=== PATIENT | male | born 1970 | race African-American/Black ===

== ENCOUNTER 2021-03-21 07:23 | Outpatient (CLI) | payer OTHER, SELFPAY ==
--- NOTE | 2021-04-01 20:42 | WPDSLEEPSTUD ---
Sleep Study Date of Study: 03/21/21 <Yue Gasca DO - Last Filed: 04/02/21 14:55> Ordering Provider: Romy Lopes MD <Yue Gasca DO - Last Filed: 04/02/21 14:55> Interpreting Physician: Yue Gasca DO <Yue Gasca DO - Last Filed: 04/02/21 14:55> Sleep Study Type: Split Polysomnogram <Yue Gasca DO - Last Filed: 04/02/21 14:55> Height: 1.83 m <Yue Gasca DO - Last Filed: 04/02/21 14:55> Weight: 113.398 kg <Yue Gasca DO - Last Filed: 04/02/21 14:55> Body Mass Index: 33.9 <Yue Gasca DO - Last Filed: 04/02/21 14:55> Neck Circumference (inches): 15 <Yue Gasca DO - Last Filed: 04/02/21 14:55> [place]: 4 <Yue Gasca DO - Last Filed: 04/02/21 14:55> Reason for Sleep Study Unrefreshing sleep, daytime hypersomnia and 2 year history of dream enactment <Yue Gasca, DO - Last Filed: 04/02/21 14:55> Sleep History The patient is a 51-year-old male with hypertension, GERD, erectile dysfunction and dream enactment behavior that had a sleep study for dirt by his r d engineer. The patient states that he has difficulty falling asleep and staying asleep throughout the night. He denies awakening at night with heartburn, belching or cough. He constantly snores loud enough that others complaints. He denies waking up gasping for air throughout the night. He occasionally sweats excessively at night. He denies heart palpitations or irregular heartbeat during the night. He occasionally falls asleep during the day but never while driving. He denies sleep paralysis, cataplexy and hypnagogic / hypnopompic hallucinations. He denies having trouble at work due to sleepiness. He occasionally has nightmares. He denies feeling sad, depressed or anxious. He occasionally kicks during the night. He denies crawling and aching feelings in his legs as well as leg pain during the night. For he denies having morning jaw pain. He denies being bothered by pain during the day and being awakened by pain during the night. He rarely wakes up feeling stiff in the morning. He rarely wakes up with sore and achy muscles. He goes to bed at 8:30 p.m. on weekdays and 9:00 p.m. on the weekends. It takes him 1 hour to fall asleep. He wakes up 3-5 times throughout the night. When he awakens, he will try to go back asleep. He can usually fall asleep within a few minutes. He wakes up at 6:00 a.m. on the weekdays and 6:30 a.m. on the weekends. He typically gets 5 hours of sleep per night. He will stay in bed for 30 minutes after waking up in the morning. He currently lives with his and children. He does not consume any caffeinated beverages within 2 hours of bedtime. He does not engage in physical exercise before bedtime. He will watch television before falling asleep. He will occasionally take a nap in the afternoon or the evening but it is not refreshing. He doesn't consume any caffeinated beverages during the day. He drinks 1 alcoholic beverage per day. He denies tobacco and recreational drug use. <Yue Gasca DO - Last Filed: 04/02/21 14:55> [facility] Past Medical History Medical History: Medical History (Updated 04/02/21 @ 14:42 by Yue Gasca DO) GERD (gastroesophageal reflux disease) Hypertension <Yue Gasca DO - Last Filed: 04/02/21 14:55> Family History Family History: Family History Mother Hypertension Sibling Lupus has 2 sisters with lupus Grandparent Diabetes mellitus maternal grandfather <Yue Gasca DO - Last Filed: 04/02/21 14:55> Social History Social History: Social History Smoking status: Never smoker <Yue Gasca DO - Last Filed: 04/02/21 14:55> Medications Home M
[2021-04-02 14:12] VITALS: BMI 33.9
== END 2021-03-22 07:00 | disposition home or self-care (01) ==
LOC: ANHCSM 07:24
PROVIDERS: Visit Provider Internal Medicine Critical Care Medicine
DX: G47.33 Obstructive sleep apnea (adult) (pediatric) (principal); G47.19 Other hypersomnia
CPT/HCPCS: 95806; 95811

== ENCOUNTER 2022-09-25 08:17 | Outpatient (CLI) | payer OTHER, SELFPAY ==
--- NOTE | ~2022-09-25 | SLEEP.INT_ITS ---
Polysomnography Report Patient Name: AARON MILLER Study Date: 09/25/2022 Referring Physician: Ricky Quintero APRN Indications for Polysomnography The patient is a 52 year-old male 6' tall and 240.0 lbs, BMI is 32.9. ESS =3 while using CPAP. ??? 03/21/2021 ??? split night polysomnogram = mild MICHAEL, AHI 13.4, REM AHI 58.7. Optimal CPAP 13 cm using a medium AirFit P30i nasal pillows. 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 He is having a full night basic polysomnogram to evaluate his response to his ProSomnus oral device for management of obstructive sleep apnea. He was fitted with this by dental sleep specialist, Dr Miah narvaez, as he was not able to tolerate CPAP, even with Lunesta. On the night of this study, 09/25/2022 20:30 Sleep supervisor laboratory animal facility [facility] me called about the patient having his PSG tonight. She wanted to know if he is to have a CPAP titration. No, I clarified that he is to wear his oral appliance, a cust om ProSomnus with elastic bands currently at 80 full turns or 8 mm advancement. If he develops an AHI > 5 or RDI > 5, he is instructed to advance the device 10 turns, 1 mm advancement, per Dr Yunier Causey's instruction on her August 28 letter. Sleep History Parts of this history are taken from his sleep questionnaire with his Mar 2021 study. Aaron olivo is a 52-year-old male with a diagnosis of obstructive sleep apnea on a split night polysomnogram on 03/21/2021. 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 He was initially referred for acting out his dreams. He was having difficulty falling asle ep and staying asleep throughout the night. He denied waking at night with heartburn, belching or coughing. He constantly snored loudly enough that others complained. He denied waking up gasping for air. He occasionally had episodes of sweating excessively at night. He denied heart palpitations or irregula r heartbeats during the night. He occasionally fell asleep during the day but never while driving. He denied sleep paralysis, cataplexy, or vivid dreamlike scenes on waking or falling asleep. He denied having t rouble at work due to sleepiness. He occasionally had nightmares. He denied feeling sad, depressed or anxious. He occasionally kicked during the night. He denied crawling and aching feelings in his leg s as well as leg pain during the night. He did not have morning jaw pain. He denies being bothered by pa in during the day or being awakened by pain during the night. He rarely woke up with stiffness in the morning. Normal bedtime was 8:30 p.m. on weekdays and 9:00 p.m. on the weekends, taking an hour to fall asleep. He had 3 to 5 episodes of waking at night, and was able to return to sleep easily. Normal wak e time was 6:00 a.m. on the weekdays and 6:30 a.m. on the weekends. His usual amount of sleep was 5 hours. He reported taking an occasional nap in the afternoon or evening without feeling refreshed afterwards. Habits: No tobacco. No caffeine. Alcohol: 1 per day. No recreational substances. 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 Respiratory parameters of chest a nd abdominal movements were recorded with Respiratory Inductance Plethysmography belts. Oxygen saturation was recorded by pulse oximetry. Video monitoring was also performed. Sleep stages, periodi c limb movements, and EEG arousals were scored in 30 second epochs a
== END 2022-09-26 07:49 | disposition home or self-care (01) ==
LOC: ANHCSM 08:18
PROVIDERS: Visit Provider Nurse Practitioner Family
DX: G47.33 Obstructive sleep apnea (adult) (pediatric) (principal)
CPT/HCPCS: 95810

== ENCOUNTER 2025-03-01 14:16 | Outpatient (CLI) | payer OTHER, SELFPAY ==
--- OUTSIDE RECORDS SUMMARY | 2025-02-27 14:11 | XMS_ITS | Encounter Summary ---
Author Organization [facility] Address [address] [place] [id number] Care Team Providers Care Hydroelectric Plant Maintainer Name Role Phone Zachary Morgan DO Primary Care Provider [phone] Encounter Details Date Type Department Care Team (Late st Contact Info) Description 02/27/2025 2:11 PM MOBILE HOME INSTALLER - 02/27/2025 11:[address] [facility] Hospital Encounter [facility] [place] [address] Mirella Leiva NP [address] [facility] [address] [facility] [place] [address] Arrived Discharge Disposition: Home or Self Care (Routine Discharge) Social History Tobacco Use Types Packs/Day Years Used Date Smoking Tobacco: Never Smokeless Tobacco: Never Alcohol Use Standard Drinks/Week Comments Yes 0 (1 standard drink = 0.6 oz pur e alcohol) SOCIALLY Sex and Gender Information Value Date Recorded Sex Assigned at Male 02/06/2025 1:48 PM MOBILE HOME INSTALLER Legal Sex Male 6:36 PM CDT Gender Identity Not on file Sexual Orientation Not on file documented as of this encounter Medications at Time of Discharge dicyclomine (BENTYL) 20 MG tablet Take 1 tablet (20 mg total) by mouth every 6 (six) hours as needed. 20 tablet 04/17/2022 hydrochlorothiazide 25 MG tablet Take 25 mg by mouth every morning. lisinopril 20 MG tablet Take 20 mg by mouth daily. naproxen 500 MG tablet Take 1 tablet (500 mg total) by mouth 2 (two) times daily with meals. 60 tablet 10/11/2020 ondansetron (ZOFRAN-ODT) 4 MG disintegrating tablet Take 1 tablet (4 mg total) by mouth every 8 (eight) hours as needed for Nausea. 20 tablet 02/24/2025 tamsulosin (FLOMAX) 0.4 MG Cap Take 1 capsule (0.4 mg total) by mouth daily for 10 days. 10 capsule 02/24/2025 documented as of this encounter Plan of Treatment Pending Results Name Type Priority Associated Diagnoses Date /Time XR ABD KUB Imaging Routine Kidney stones 02/27/2025 2:22 PM MOBILE HOME INSTALLER Scheduled Orders Name Type Priority Associated Diagnoses Orde r Schedule XR ABD KUB Imaging Routine Kidney stones Once for 1 Occurrences starting 02/27/2025 until 02/27/2025 documented as of this encounter Visit Diagnoses Diagnosis Kidney stones Calculus of kidney documented in this encounter Care Teams Hydroelectric Plant Maintainer Relationship Specialty Start Date End Date Zachary Morgan DO [address] [address] PCP - General FAMILY PRACTICE 01/05/25 documented as of this encounter
--- NOTE | 2025-03-01 14:32 | ECG_ITS ---
Test Date: 2025-03-01 14:41:34 Measurements Intervals [place] Rate: 72 P: 20 PA: 177 QRS: -13 QRSD: 80 T: -10 QT: 301 QTc: 331 Interpretive Statements SINUS RHYTHM LOW QRS VOLTAGE IN PRECORDIAL LEADS LEFT VENTRICULAR HYPERTROPHY NONSPECIFIC T-WAVE ABNORMALITY- ANTEROLAT/INF LEADS BASELINE ARTIFACT- I, II, AVR BORDERLINE ECG No previous ECG available for comparison Electronically Signed On 03-01-2025 14:44:42 [employer] by Robert Wilder D.O.
[2025-03-01 15:09] LABS: Anion Gap 7 mmol/L (4-12); Blood Urea Nitrogen 19 mg/dL (9-20); Calcium 9.8 mg/dL (8.4-10.2); Carbon Dioxide 26 mmol/L (22-30); Chloride 106 mmol/L (98-107); Estimated Glomerular Filt Rate > 60; Glucose 100 mg/dL (65-110); Potassium 3.6 mmol/L (3.4-5.0); Sodium 139 mmol/L (137-145)
--- OUTSIDE RECORDS SUMMARY | 2025-03-01 17:10 | XMS_ITS | Clinical Summary ---
Author Organization [facility] Address [address] [facility] [address] [facility] Attn: Epic Prelude ADT RADHA GARCIA [address] Care Team Providers Care Pants Busheler Name Role Phone Unavailable Primary Care Provider Unavailabl e Allergies No known active allergies Medications eszopiclone (LUNESTA) 1 mg Tablet TAKE ONE TABLET (1MG) BY MOUTH AT BEDTIME NEEDED FOR INSOMNIA 30 Tablet 11/12/2021 4:48 PM CDT 2 Active eszopiclone (LUNESTA) 3 mg Tablet Take 1 Tablet (3 mg) by mouth once for 1 dose. Take with you to sleep center for sleep study, if needed. 1 Tablet 09/04/2022 7:05 PM CDT 3 Active cyclobenzaprine (FLEXERIL) 5 mg Tablet Take 1 tablet (5 mg total) by mouth 3 (three) times daily as needed. 30 Tablet 12/04/2022 10:35 AM CDT 3 Active ibuprofen (MOTRIN) 600 mg tablet Take 1 Tablet (600 mg) by mouth every 6 hours as needed. 30 Tablet 12/04/2022 10:35 AM CDT 3 Active lidocaine (LIDODERM) 5 % Adhesive Patch, Medicated Place 1 patch onto the skin daily for 30 days. Remove & Discard patch within 12 hours or as directed by . 30 Patch 12/04/2022 10:35 AM CDT 3 Active bismuth subsalicylate (Pepto-BismoL) 262 mg Tablet Take 2 tablets by mouth 4 times per day for 14 days 112 Tablet 5 Active tetracycline (SUMYCIN) 500 mg capsule Take 1 capsule by mouth 4 times per day for 14 days 56 Capsule 08/18/2024 12:54 PM CDT 5 Active metroNIDAZOLE (FLAGYL) 500 mg tablet Take 1 tablet by mouth 4 times daily for 14 days (do not drink any alcohol on this medication) 56 Tablet 08/18/2024 12:54 PM CDT 5 Active tamsulosin (FLOMAX) 0.4 mg capsule Take 1 capsule (0.4 mg total) by mouth daily for 10 days. 10 Capsule 02/24/2025 7:51 PM GENERAL MANAGER FARM 5 03/06/20 25 Active ondansetron (ZOFRAN ODT) 4 mg Tablet, Rapid Dissolve Let 1 tablet (4 mg total) dissolve on tongue then swallow every 8 (eight) hours as needed for Nausea. 20 Tablet 02/24/2025 7:51 PM GENERAL MANAGER FARM 5 Active HYDROcodone-acetam inophen (NORCO) 5-325 mg tablet Take 1 tablet by mouth every 6 (six) hours as needed for pain 10 Tablet 02/24/2025 7:51 PM GENERAL MANAGER FARM 5 Active Encounters Date Type Department Care Team Description 01/17/2025 External Device Data [facility] ABSTRACTION Provider, Abstract 01/11/2025 External Device Data [facility] Provider, Abstract 01/10/2025 External Device Data [facility] Provider, Abstract from Last 3 Months Social History Tobacco Use Types Packs/Day Years Used Date Smoking Tobacco: Never Assessed Sex and Gender Information Value Date Recorded Sex Assigned at Not on file Legal Sex Male 3:23 PM CDT Gender Identity Not on file Sexual Orientation Not on file Plan of Treatment Health Maintenance Due Date Last Done Comments DTAP/TDAP/TD VACCINES (1 - Tdap) 01/21/1988 HEPATITIS B VACCINES (1 of 3 - 19+ 3-dose series) 09/1987 COLORECTAL SCREENING 2014 Colorectal Cancer Screening 2014 FIT-DNA Q 3 years 2014 FIT/FOBT Q 1 year 2014 Flex Sig/CT Colonography Q 5 years 2014 ZOSTER VACCINE (1 of 2) 2019 INFLUENZA VACCINE (#1) 2024 Insurance RX [employer]
--- OUTSIDE RECORDS SUMMARY | 2025-03-01 17:10 | XMS_ITS | Clinical Summary ---
Author Organization [facility] Address [address] [facility] [place] [address] Care Team Providers Care Webmaster Name Role Phone Unavailable Primary Care Provider Unavailabl e Social History Tobacco Use Types Packs/Day Years Used Date Smoking Tobacco: Never Assessed Sex and Gender Information Value Date Recorded Sex Assigned at Not on file Legal Sex Male 1:14 AM EST Gender Identity Not on file Sexual Orientation Not on file Plan of Treatment Not on file [place] [id number]
--- OUTSIDE RECORDS SUMMARY | 2025-03-01 17:10 | XMS_ITS | Clinical Summary ---
Author Organization [facility] Address [facility]ly [facility] [place] [address] Care Team Providers Care Closet Organizer Name Role Phone Zachary Venegas DO Primary Care Provider [phone] Allergies No known active allergies Medications lisinopril 20 MG tablet Take 20 mg by mouth daily. Active hydrochlorothiazide 25 MG tablet Take 25 mg by mouth every morning. Active naproxen 500 MG tablet Take 1 tablet (500 mg total) by mouth 2 (two) times daily with meals. 60 tablet 1 Active dicyclomine (BENTYL) 20 MG tablet Take 1 tablet (20 mg total) by mouth every 6 (six) hours as needed. 20 tablet 3 Active tamsulosin (FLOMAX) 0.4 MG Cap Take 1 capsule (0.4 mg total) by mouth daily for 10 days. 10 capsule 5 03/06/20 25 Active ondansetron (ZOFRAN-ODT) 4 MG disintegrating tablet Take 1 tablet (4 mg total) by mouth every 8 (eight) hours as needed for Nausea. 20 tablet 5 Active HYDROcodone-acetami nophen (NORCO) 5-325 MG tabletIndications:A cute Pain < 3 Day Supply Take 1 tablet by mouth every 6 (six) hours as needed. Indications : Acute Pain < 3 Day Supply 10 tablet 5 02/28/20 25 Active Problems No known active problems Encounters Date Type Department Care Team Description 02/27/2025 2:11 PM HOGSHEAD PACKER - 02/27/2025 11:59 PM HOGSHEAD PACKER Hospital Encounter [facility] [place] [address] Mirella Leiva, CIVIL ENGINEER [employer]AND DEVELOPMENT Arrived Discharge Disposition: Home or Self Care (Routine Discharge) 02/27/2025 Travel 02/24/2025 3:37 PM HOGSHEAD PACKER - 02/24/2025 7:03 PM HOGSHEAD PACKER Emergency Health system [place] [address] Maylin Saxena MD Abdominal Pain Discharge Disposition: Home or Self Care (Routine Discharge) 02/24/2025 Travel 02/06/2025 1:50 PM HOGSHEAD PACKER - 02/06/2025 11:59 PM HOGSHEAD PACKER Hospital Encounter [place] [address] Zachary Venegas, DO Discharge Disposition: Home or Self Care (Routine Discharge) 02/06/2025 Travel from Last 3 Months Family History Medical History Relation Comments Hypertension Mother Relation Status Comments Father Mother Alive Social History Tobacco Use Types Packs/Day Years Used Date Smoking Tobacco: Never Smokeless Tobacco: Never Alcohol Use Standard Drinks/Week Comments Yes 0 (1 standard drink = 0.6 oz pur e alcohol) SOCIALLY Sex and Gender Information Value Date Recorded Sex Assigned at Male 02/06/2025 1:48 PM HOGSHEAD PACKER Legal Sex Male 6:36 PM CDT Gender Identity Not on file Sexual Orientation Not on file Last Filed Vital Signs Vital Sign Reading Time Taken Comments Blood Pressure 156/93 02/24/2025 6:10 PM HOGSHEAD PACKER Pulse 88 02/24/2025 6:10 PM HOGSHEAD PACKER Temperature 37.2 C (98.9 F) 02/24/2025 3:22 PM HOGSHEAD PACKER Respiratory Rate 18 02/24/2025 3:22 PM HOGSHEAD PACKER Oxygen Saturation 100% 02/24/2025 6:10 PM HOGSHEAD PACKER Inhaled Oxygen Concentration - - Weight 113 kg (249 lb 1.9 oz) 02/24/2025 3:22 PM HOGSHEAD PACKER Height 182.9 cm (6') 02/24/2025 3:22 PM HOGSHEAD PACKER Body Mass Index 33.79 02/24/2025 3:22 PM HOGSHEAD PACKER Plan of Treatment Health Maintenance Due Date Last Done Comments Colorectal Cancer Screening Colonoscopy (10 Years) 1969 Annual Physical 01/21/1972 Hepatitis C 1987 Hepatitis B Vaccines (1 of 3 - 19+ 3-dose series) 01/21/1988 DTaP, Tdap and Td Vaccines (2 - Td or Tdap) 01/06/2018 01/07/2008, 10/03/1997 Pneumococcal Vaccine: 50+ Years (1 of 1 - PCV) 2019 Zoster Vaccines (1 of 2) 2019 COVID-19 Vaccine ( - season) 2024 12/27/2021, 02/15/2021, 07/02/2020, Additional history exists Influenza Adult (#1) 2024 01/02/2015, 12/31/2012, 01/10/2009, Additional history exists Hepatitis A Vaccines Aged Out 06/04/1995 No long er eligible based on patient's age to complete this topic Meningococcal Vaccine Aged Out 11/12/2006 , 08/04/2001, 08/15/1996 No longer eligible based on patient's age to complete this topic Meningococcal B Vaccine Aged Out No l onger eligible based on patient's age to complete this topic RSV Immunizations Under 20 Months Aged Out No longer eligible based on patient's age to complete this topic Procedures Procedure Name Priority Date/Time Associated Diagnosis Comments CT ABD+PEL W CON STAT 02/24/2025 5:38 PM HOGSHEAD PACKER LIPASE STAT 02/24/2025 3:54 PM HOGSHEAD PACKER COMPREHENSIVE METABOLIC PANEL STAT 02/24/2025 3:54 PM HOGSHEAD PACKER URINALYSIS STAT 02/24/2025 3:54 PM HOGSHEAD PACKER MRI SHOULDER RT WO CON Routine 2:17 PM HOGSHEAD PACKER Right shoulder pain from Last 3 Months Results * CT ABD+PEL W IV CON ONLY (02/24/2025 5:38 PM HOGSHEAD PACKER) Anatomical Region Laterality Modality Abdomen Computed Tomogra phy 02/24/2025 6:00 PM HOGSHEAD PACKER Impressions 02/24/2025 6:06 PM HOGSHEAD PACKER IMPRESSION: 1. Mild right hydroureteronephrosis secondary to an obstructing 7 mm mid right ureteric stone. 2. No CT evidence of bowel obstruction or acute appendicitis. 3. There are 2 nonobstructing right renal stones imaging up to 5.5 mm. 4. Diffuse hepatic steatosis. 5. Prostatomegaly. 6. Partially bilateral varicoceles. Referred By: Interpreted By: Randal Crawley MD, 02/24/2025 6:00 PM Narrative 02/24/2025 6:06 PM HOGSHEAD PACKER [address] [address] PROCEDURE: CT ABD+PEL W CON HISTORY: Right lower quadrant pain. TECHNIQUE: Helical CT of the abdomen and pelvis was performed using non-ionic intravenous contrast (Isovue-370, 100 cc). No oral contrast is administered. A dose lowering technique was used for this procedure, which may include, but is not limited to, dose reduction technique, automated exposure control, the use of iterative reconstruction, and ALARA (As Low As Reasonably Achievable) / Image Gently techniques. COMPARISON: CT abdomen pelvis with contrast, 04/17/[address] ABDOMEN/PELVIS: Lower thorax: There is subsegmental atelectasis in the lower lobes. The heart is normal in size. Liver: The liver is normal in size. There is no intrahepatic mass. There is diffuse hepatic steatosis. Biliary tree: The gallbladder is present. There is no biliary ductal dilatation. Spleen: The spleen is normal in size. Pancreas: The pancreas is normal in size and enhances homogenously. Adrenal glands: The adrenal glands are normal in size and shape. Kidneys: Mild right hydroureteronephrosis secondary to obstructing 7 mm mid right ureteric stone. There are additional nonobstructing right renal stones measuring up to 5.5 mm Lymph nodes: Abdomen: There is no abdominal adenopathy. Pelvis: There is no pelvic adenopathy. Vasculature: There is no abdominal aortic aneurysm. Atherosclerotic calcification is seen. Bilateral varicoceles. Peritoneum/mesentery/omentum: There is no free fluid or free air. GI tract: There is no bowel obstruction. The appendix is normal. There is no abnormal bowel wall thickening. Submucosal fatty infiltration now the colon and rectum, unchanged.. Pelvic urogenital structures:The bladder is grossly unremarkable. The prostate is enlarged measuring up to 5.7 cm in the transverse dimension.. Body wall: There are degenerative changes in the spine. No aggressive osseous lesions are identified. [place]: (S/I) = series number / image number Procedure Note Randal Crawley MD - 02/24/[address] [address] PROCEDURE: CT ABD+PEL W CON HISTORY: Right lower quadrant pain. TECHNIQUE: Helical CT of the abdomen and pelvis was performed usingnon-ionic intravenous contrast (Isovue-370, 100 cc). No oral contrast isadministered. A dose lowering technique was used for this procedure, which may include,but is not limited to, dose reduction technique, automated exposurecontrol, the use of iterative reconstruction, and ALARA (As Low AsReasonably Achievable) / Image Gently techniques. COMPARISON: CT abdomen pelvis with contrast, 04/17/[address] ABDOMEN/PELVIS: Lower thorax: There is subsegmental atelectasis in the lower lobes. Theheart is normal in size. Liver: The liver is normal in size. There is no intrahepatic mass. Thereis diffuse hepatic steatosis. Biliary tree: The gallbladder is present. There is no biliary ductaldilatation. Spleen: The spleen is normal in size. Pancreas: The pancreas is normal in size and enhances homogenously. Adrenal glands: The adrenal glands are normal in size and shape. Kidneys: Mild right hydroureteronephrosis secondary to obstructing 7 mmmid right ureteric stone. There are additional nonobstructing right renalstones measuring up to 5.5 mm Lymph nodes: Abdomen: There is no abdominal adenopathy. Pelvis: There is no pelvic adenopathy. Vasculature: There is no abdominal aortic aneurysm. Atheroscleroticcalcification is seen. Bilateral varicoceles. Peritoneum/mesentery/omentum: There is no free fluid or free air. GI tract: There is no bowel obstruction. The appendix is normal. Thereis no abnormal bowel wall thickening. Submucosal fatty infiltration nowthe colon and rectum, unchanged.. Pelvic urogenital structures:The bladder is grossly unremarkable. Theprostate is enlarged measuring up to 5.7 cm in the transversedimension.. Body wall: There are degenerative changes in the spine. No aggressiveosseous lesions are identified. [place]: (S/I) = series number / image number IMPRESSION: 1. Mild right hydroureteronephrosis secondary to an obstructing 7 mm midright ureteric stone. 2. No CT evidence of bowel obstruction or acute appendicitis. 3. There are 2 nonobstructing right renal stones imaging up to 5.5 mm. 4. Diffuse hepatic steatosis. 5. Prostatomegaly. 6. Partially bilateral varicoceles. Referred By: Interpreted By: Randal Crawley MD, 02/24/2025 6:00 PM Kenrick Nina GRINDER AND PLATER CT Final Result * (ABNORMAL) URINALYSIS (02/24/2025 3:54 PM HOGSHEAD PACKER) SPECIMEN TYPE URINE CLEAN CATCH 02/24/2025 3:54 PM HOGSHEAD PACKER [facility] COLOR (U) YELLOW 02/24/2025 4:30 PM HOGSHEAD PACKER [facility] TRANSPARENCY TURBID 02/24/2025 4:30 PM HOGSHEAD PACKER [facility] SPECIFIC GRAVITY (U) 1.027 1.001 - 1.030 02/24/2025 4:30 PM HOGSHEAD PACKER [facility] U PH 6.5 5.0 - 9.0 02/24/2025 4:30 PM HOGSHEAD PACKER [facility] LEUKOCYTES (U) NEGATIVE NEGATIVE 02/24/2025 4:30 PM HOGSHEAD PACKER [facility] NITRITES NEGATIVE NEGATIVE 02/24/2025 4:30 PM HOGSHEAD PACKER [facility] PROTEIN RANDOM (U) 30(H) <30 MG/DL 02/24/2025 4:30 PM HOGSHEAD PACKER [facility] GLUCOSE (U) NORMAL NORMAL MG/DL 02/24/2025 4:30 PM HOGSHEAD PACKER [facility] KETONES MG/DL (U) NEGATIVE NEGATIVE MG/DL 02/24/2025 4:30 PM HOGSHEAD PACKER [facility] UROBILINOGEN NORMAL NORMAL MG/DL 02/24/2025 4:30 PM HOGSHEAD PACKER [facility] BILIRUBIN (U) NEGATIVE NEGATIVE MG/DL 02/24/2025 4:30 PM HOGSHEAD PACKER [facility] BLOOD (U) 3+(A) NEGATIVE 02/24/2025 4:30 PM HOGSHEAD PACKER [facility] MUCUS MANY /LPF 02/24/2025 4:30 PM HOGSHEAD PACKER [facility] WBC/HPF 2 <6 /HPF 02/24/2025 4:30 PM HOGSHEAD PACKER [facility] RBC/HPF >100(H) <6 /HPF 02/24/2025 4:30 PM HOGSHEAD PACKER [facility] URINE URINE SPECIMEN OBTAINED BY CLEAN CATCH PROCEDURE / Unknown 02/24/2025 3:54 PM HOGSHEAD PACKER Kenrick Nina APRN URINE ORDERABLES Final Resul t [facility] [address] [place] [address], [place] [phone] * LIPASE (02/24/2025 3:54 PM HOGSHEAD PACKER) LIPASE 18 13 - 75 UNITS/L 02/24/2025 6:40 PM HOGSHEAD PACKER [facility] BLOOD VENOUS BLOOD SPECIMEN / Unknown 02/24/2025 3:54 PM HOGSHEAD PACKER us Maylin Saxena MD LABORATORY Final Result [facility] [address] [place] [address], * (ABNORMAL) COMPREHENSIVE METABOLIC PANEL (02/24/2025 3:54 PM HOGSHEAD PACKER) [facility] Signature GLUCOSE 102(H) 70 - 99 MG/DL 02/24/2025 6:40 PM HOGSHEAD PACKER [facility] BUN 14 7 - 18 MG/DL 02/24/2025 6:40 PM HOGSHEAD PACKER [facility] CREATININE S/P/B 0.90 0.7 - 1.3 MG/DL 02/24/2025 6:40 PM HOGSHEAD PACKER [facility] SODIUM S/P/B 138 136 - 145 MMOL/L 02/24/2025 6:40 PM HOGSHEAD PACKER [facility] POTASSIUM S/P/B 4.0 3.5 - 5.1 MMOL/L 02/24/2025 6:40 PM HOGSHEAD PACKER [facility] CHLORIDE S/P/B 106 97 - 115 MMOL/L 02/24/2025 6:40 PM HOGSHEAD PACKER [facility] CO2 25.6 21 - 32 MMOL/L 02/24/2025 6:40 PM [facility] CALCIUM S/P/B 8.9 8.5 - 10.1 MG/DL 02/24/2025 6:40 PM [facility] BILIRUBIN TOTAL S/P/B 0.4 0.2 - 1.2 MG/DL 02/24/2025 6:40 PM [facility] Comment: THIS ASSAY IS NOT RECOMMENDED FOR PATIENTS UNDERGOING TREATMENT WITH ELTROMBOPAG DUE TO THE POTENTIAL FOR FALSELY ELEVATED RESULTS. TOTAL PROTEIN S/P/B 7.6 6.4 - 8.2 G/DL 02/24/2025 6:40 PM HOGSHEAD PACKER [facility] ALBUMIN S/P/B 3.9 3.4 - 5.0 G/DL 02/24/2025 6:40 PM HOGSHEAD PACKER [facility] AST 22 15 - 37 U/L 02/24/2025 6:40 PM [facility] ALT 68(H) 16 - 60 U/L 02/24/2025 6:40 PM HOGSHEAD PACKER [facility] ALKALINE PHOSPHATASE S/P/B 90 50 - 136 U/L 02/24/2025 6:40 PM [facility] ANION GAP 6.4 2 - 10 MMOL/L 02/24/2025 6:40 PM [facility] BUN CREATININE RATIO 15.6 6 - 26 02/24/2025 6:40 PM [facility] A/G RATIO 1.1 1.0 - 2.0 RATIO 02/24/2025 6:40 PM [facility] GFR ESTIMATE >90 >90 ML/MIN/1.7 3 M2 02/24/2025 6:40 PM [facility] Comment: NOTE: eGFR is not calculated for patients <18 years of age or gender unknown. This is an estimated GFR calculation using the new CKD EPI creatinine equation without race and so does not require a correction factor for race. This estimated GFR should not be used for calculating drug doses. BLOOD VENOUS BLOOD SPECIMEN / Unknown 02/24/2025 3:54 PM HOGSHEAD PACKER us Mayiln Saxena MD LABORATORY Final Result [facility] [address] [place] [address], * MRI SHOULDER RT WO CON (02/06/2025 2:17 PM HOGSHEAD PACKER) Anatomical Region Laterality Modality Shoulder Magnetic Resonan ce 02/15/2025 3:23 PM HOGSHEAD PACKER Impressions 02/15/2025 3:28 PM HOGSHEAD PACKER IMPRESSION: 1. Small partial articular sided insertional tear of infraspinatus measures 5 mm and involves approximately 25% tendon thickness. 2. No high-grade or full-thickness rotator cuff tear identified. 3. No definite labral tear. If detailed labral evaluation is clinically indicated, nonemergent MRI arthrogram recommended. 4. Findings concerning for subacromial impingement, including spurring and narrowing and moderate bursitis. 5. Mild infraspinatus atrophy. Ordered By: ZACHARY VENEGAS Interpreted By: Prem Jones, 02/15/2025 3:23 PM Narrative 02/15/2025 3:28 PM HOGSHEAD PACKER [address] [address] EXAMINATION: MRI RIGHT SHOULDER WITHOUT CONTRAST EXAM DATE: 02/06/2025 1:52 PM REASON FOR EXAM: Shoulder pain and decreased range of motion. COMPARISON: None TECHNIQUE: Multisequence multiplanar imaging of the shoulder without intravenous contrast. FINDINGS: Mild soft tissue swelling surrounding the joint. ROTATOR CUFF: Mild infraspinatus atrophy. Small partial articular sided insertional tear of infraspinatus measures 5 mm and involves approximately 25% tendon thickness. Supraspinatus and infraspinatus atrophy. No high-grade or full-thickness rotator cuff tear identified. BICEPS: Long head biceps anatomically positioned in the intertubercular groove. LABRUM: No definite labral tear. If detailed labral evaluation is clinically indicated, nonemergent MRI arthrogram recommended. ACROMIOCLAVICULAR: Osteoarthritis. 7 mm spurring and narrowing and moderate bursitis concerning for impingement. GLENOHUMERAL: No joint effusion or full-thickness cartilage loss identified. BONE MARROW: No suspicious lesion or fracture. Procedure Note Prem Jones MD - 02/15/2025 [address] [address], [place] [address] EXAMINATION: MRI RIGHT SHOULDER WITHOUT CONTRAST EXAM DATE: 02/06/2025 1:52 PM REASON FOR EXAM: Shoulder pain and decreased range of motion. COMPARISON: None TECHNIQUE: Multisequence multiplanar imaging of the shoulder withoutintravenous contrast. FINDINGS: Mild soft tissue swelling surrounding the joint. ROTATOR CUFF: Mild infraspinatus atrophy. Small partial articular sided insertional tear of infraspinatus measures 5mm and involves approximately 25% tendon thickness. Supraspinatus and infraspinatus atrophy. No high-grade or full-thickness rotator cuff tear identified. BICEPS: Long head biceps anatomically positioned in the intertubercular groove. LABRUM: No definite labral tear. If detailed labral evaluation is clinicallyindicated, nonemergent MRI arthrogram recommended. ACROMIOCLAVICULAR: Osteoarthritis. 7 mm spurring and narrowing and moderate bursitisconcerning for impingement. GLENOHUMERAL: No joint effusion or full-thickness cartilage loss identified. BONE MARROW: No suspicious lesion or fracture. IMPRESSION: 1. Small partial articular sided insertional tear of infraspinatusmeasures 5 mm and involves approximately 25% tendon thickness. 2. No high-grade or full-thickness rotator cuff tear identified. 3. No definite labral tear. If detailed labral evaluation is clinicallyindicated, nonemergent MRI arthrogram recommended. 4. Findings concerning for subacromial impingement, including spurringand narrowing and moderate bursitis. 5. Mild infraspinatus atrophy. Ordered By: ZACHARY VENEGAS Interpreted By: Prem Jones, 02/15/2025 3:23 PM us Zachary Venegas DO MRI Final Resul t from Last 3 Months Insurance [facility] Care Teams Closet Organizer Relationship Specialty Start Date End Date Zachary Venegas DO [address] [address] PCP - General FAMILY PRACTICE 01/05/25
--- OUTSIDE RECORDS SUMMARY | 2025-03-01 17:10 | XMS_ITS | Clinical Summary ---
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 Gender Identity Not on file Sexual Orientation Not on file Plan of Treatment Health Maintenance Due Date Last Done Comments Hepatitis C Virus (HCV) Screening 1970 TdaP Immunization 1969 Hepatitis B Immunization (1 of 3 - 19+ 3-dose series) 01/21/1988 Cologuard 2014 Colonoscopy 2014 Colorectal Cancer Screening 2014 Immunochemical Fecal Occult Blood 2014 Pneumococcal Immunization (5 0+ years) (1 of 1 - PCV) 2019 Zoster Immunization (1 of 2) 2019 Influenza Immunization (#1) 2024 SARS-COV-2 Immunization (2023-25 season) 2024 Respiratory Syncytial Virus (RSV) Immunization (Adult) (1 - 1-dose 75+ series) 01/21/2044 Human Papillomavirus (HPV) Immunization Aged Out No longer eligible b ased on patient's age to complete this topic Meningococcal Immunization (ACWY) Aged Out No longer eligible based on patient's age to complete this topic Rotavirus Immunization Aged Out No lo nger eligible based on patient's age to complete this topic
== END 2025-03-01 14:17 | disposition home or self-care (01) ==
LOC: ANHSURGERY 14:21
PROVIDERS: Anesthesiology; Visit Provider Urology
DX: Z01.818 Encounter for other preprocedural examination (principal); I10 Essential (primary) hypertension; R94.31 Abnormal electrocardiogram [ECG] [EKG]; Z79.899 Other long term (current) drug therapy
CPT/HCPCS: 36415; 80048; 93005

== ENCOUNTER 2025-03-03 02:53 | Day surgery (SDC) | payer OTHER, SELFPAY ==
--- OUTSIDE RECORDS SUMMARY | 2025-02-28 10:00 | XMS_ITS | Continuity of Care Document ---
Author Organization [facility] Address [address] [facility] [address] [facility] [address] [place] [address] Phone Care Team Providers Care Access Control Specialist Name Role Phone Naveed Ayers PT Unavailable Unavailable Procedures Procedure Date Therapeutic Activities Neuromuscular Re-Ed Therapeutic Exercise Waive Cancel or No Show - No Charge Therapeutic Activities Neuromuscular Re-Ed Therapeutic Exercise Therapeutic Activities Neuromuscular Re-Ed Therapeutic Activities Neuromuscular Re-Ed Therapeutic Exercise Waive Cancel or No Show - No Charge PT Evaluation Low Complexity Therapeutic Activities Therapeutic Exercise Advance Directives Directive Yes / No Effective Date File Name No Information Encounters Encounter Description Practice Location Reason(s) For Visit Diagnoses Date Provider Providers Copied on Encounter [facility], [place], [place], [id number], tel:[phone] [place] No Information Andria Lucio. . Referring Provider: Zachary Morgan, [address], [address]. tel:[phone] [facility], [address], [place], [place], [id number], tel:[phone] [place] No Information Dellamano Naveed. . Referring Provider: Zachary Morgan, [address] [facility] [address], [place], [address]. tel:[phone] [facility] [address], [place], [place], [id number], tel:[phone] [place] No Information Dellamano Naveed. . Referring Provider: Zachary Morgan, 3 [facility] [address], [place], [address]. tel:[phone] [place] [address] [address], [place], [place], [id number], tel:[phone] [place] No Information Dellamano Naveed. . Referring Provider: Zachary Morgan, 3 [facility] [address], [place], [address]. tel:[phone] [place] [address] [address], [place], [place], [id number], tel:[phone] [place] No Information Dellamano Naveed. . Referring Provider: Zachary Morgan, 3 [facility] [address], [place], [address]. tel:[phone] [facility] [address], [place], [place], [id number], tel:[phone] [place] No Information Dellamano Naveed. . Referring Provider: Zachary Morgan, [address] [facility] [address], [place], [address]. tel:[phone] [facility] [address], [place], [place], [id number], tel:[phone] [place] No Information Dellamano Naveed. . Referring Provider: Zachary Morgan, 3 [facility] [address], [place], [address]. tel:[phone] Family History Family Member Type Diagnosis Age At Onset No Information Payers Payer name Insurance type Covered green party ID Brandon mendez(s) [facility] Claims CI [id number] Social History Type Description Quantity Date Captured Comments Sex Male Smoking Status No Information Chief Complaint And Reason For Visit No Information Reason For Referral Reason For Referral No Information Plan Of Treatment Date Type Action Status Appointment YUMIKO MILLER BOOKED Appointment YUMIKO MILLER 09/01 Dawson lauren BOOKED Appointment YUMIKO MILLER BOOKED Appointment YUMIKO MILLER BOOKED Appointment YUMIKO MILLER BOOKED Appointment YUMIKO MILLER BOOKED Appointment YUMIKO MILLER BOOKED History Of Present Illness Encounter Date Complaint History Of Prese nt Illness No Information Functional Status Date Functional Assessmen t No Information Instructions Date Instruction Additional Infor mation No Information Assessments Type Assessment Date No Information Patient Care Teams Name Effective Dates (start - stop) Status Members No Information
[2025-02-28 12:06] VITALS: BMI 34.9
--- NOTE | 2025-02-28 12:13 | PC.NURSE ---
[facility] has started construction of its new state of the art ER which will open Spring 2026. With this, we anticipate parking may be a challenge for some our surgical patients and families. Parking spaces are limited but are available for all Surgical, obstetrics, and ER patients sharing this lot. If you arrive and find you are having a hard time finding a parking space, please note that we understand the challenges, please drive around the hospital and park near Hospital Entrance 1. When you enter this entrance, you can ask a volunteer to direct or take you back to the surgical waiting area to check in. We appreciate everyone?s understanding of these expected challenges while we build for your future. Report to the Outpatient Waiting Room, entrance under the green pavilion located off [address], at time __12:30pm on date _03/03/25 . Planned Procedure Time: __2:30pm .? Time changes happen often and if your time is changed the preop area will call you the afternoon before. - You and your visitor will be asked to self-screen and do not enter if you have any COVID symptoms. Please call surgeon if you need to reschedule. - A mask is optional within the hospital at this time. Patients may have clear liquids (water, carbonated beverages, clear teas, apple juice) until 3 hours prior to surgery with a maximum of 20 ounces. - No food from midnight until time of surgery and no smoking, or chewing tobacco (or any form of nicotine). No chewing gum, candy or mints. (11:30am) Take only the following medications with a SIP of water on the morning of surgery: ___Hydrocodone if needed DO NOT STOP ANY OF YOUR OTHER PRESCRIPTION MEDICATIONS PRIOR TO SURGERY EXCEPT THE FOLLOWING Hold all vitamins and supplements for 3 days per anesthesiologist. Medications to discontinue per physician NO ASPIRIN OR NSAIDS till post op per DR OLIVIA CH OK Date to take last dose NONE Please no make-up, nail senegalese, hairspray, perfume, deodorant, or body powder the day of surgery.? No jewelry (including any body piercings) or valuables the day of surgery, leave them at home.? Please take a shower or bath the night before, or the morning of, surgery with an antibacterial soap.? Wear comfortable, loose fitting clothing.? - Jewelry must be removed prior to entering the operating room.? Rings and piercings that are not removed may be cut off. - The hospital will not accept responsibility for valuables.? - Please leave all valuables, including medications, at home the day of surgery. If you are going home after surgery, a licensed race car driver must drive you home.? - NO public transportation without another adult if you receive anesthesia. - We recommend that an adult stay with you for 24 hours following discharge. - We also recommend that you do not drive, make important decision, drink alcoholic beverages, or take any drugs that were not prescribed by your health care provider for at least 24 hours after your discharge time. Follow any additional instructions given to you from your surgeon. Telephone instructions given to __Patient and asked if any additional questions and then verbalized understanding. Patient advised to call surgeon office or pre surgery nurse liaison [phone] if any additional questions.
[2025-03-03] VITALS (9 sets, daily range): BP systolic 119–186; BP diastolic 86–108; PULSE 70–87; RESP 11–19; TEMP 36.2–36.5; O2SAT 98–100
--- NOTE | ~2025-03-03 | XR_ITS ---
Intraoperative images, fluoroscopy time 62 seconds Reviewed, dictated and finalized at location P. METAL [employer]GER
--- OUTSIDE RECORDS SUMMARY | 2025-03-03 02:55 | XMS_ITS | Clinical Summary ---
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
--- OUTSIDE RECORDS SUMMARY | 2025-03-03 02:55 | XMS_ITS | Clinical Summary ---
Author Organization [facility] Address [address] [facility] [place] [address] Care Team Providers Care Waste Handling Technician Name Role Phone Unavailable Primary Care Provider Unavailabl e Social History Tobacco Use Types Packs/Day Years Used Date Smoking Tobacco: Never Assessed Sex and Gender Information Value Date Recorded Sex Assigned at Not on file Legal Sex Male 1:14 AM EST Gender Identity Not on file Sexual Orientation Not on file Plan of Treatment Not on file Medical [place] [phone]
--- OUTSIDE RECORDS SUMMARY | 2025-03-03 02:56 | XMS_ITS | Clinical Summary ---
Author Organization [facility] Address [address] [facility] Attn: Epic Prelude ADT RADHA GARCIA [phone] Care Team Providers Care Aml Analyst Name Role Phone Unavailable Primary Care Provider [...] 10 days. 10 Capsule 02/24/2025 7:51 PM CLEANING PROFESSIONAL 5 03/06/20 25 Active ondansetron (ZOFRAN ODT) 4 mg Tablet, Rapid Dissolve Let 1 tablet (4 mg total) dissolve on tongue then swallow every 8 (eight) hours as needed for Nausea. 20 Tablet 02/24/2025 7:51 PM CLEANING PROFESSIONAL 5 Active HYDROcodone-acetam inophen (NORCO) 5-325 mg tablet Take 1 tablet by mouth every 6 (six) hours as needed for pain 10 Tablet 02/24/2025 7:51 PM CLEANING PROFESSIONAL 5 Active Encounters Date Type Department Care [...]
--- OUTSIDE RECORDS SUMMARY | 2025-03-03 02:56 | XMS_ITS | Clinical Summary ---
Author Organization [facility] Address [facility] [place] [address] Care Team Providers Care [employer] Baker Name Role Phone Zachary Venegas DO Primary Care Provider [phone] Allergies No known active allergies Medications lisinopril [...] Department Care Team Description 02/27/2025 2:11 PM CORRECTIONAL THERAPY TEACHER - 02/27/2025 11:59 PM CORRECTIONAL THERAPY TEACHER Hospital Encounter [facility] [place] [address] Mirella Leiva, DINING HOST Discharge Disposition: Home or Self Care (Routine Discharge) 02/27/2025 Travel 02/24/2025 3:37 PM CORRECTIONAL THERAPY TEACHER - 02/24/2025 7:03 PM CORRECTIONAL THERAPY TEACHER Emergency [facility] [place] [address] Maylin Saxena MD Abdominal Pain Discharge Disposition: Home or Self Care (Routine Discharge) 02/24/2025 Travel 02/06/2025 1:50 PM CORRECTIONAL THERAPY TEACHER - 02/06/2025 11:59 PM CORRECTIONAL THERAPY TEACHER Hospital Encounter [facility] [place] [address] Zachary Venegas DO Discharge Disposition: Home or Self Care [...] Sex Assigned at Male 02/06/2025 1:48 PM CORRECTIONAL THERAPY TEACHER Legal Sex Male 6:36 PM CDT Gender Identity Not on file Sexual Orientation Not on file Last Filed Vital Signs Vital Sign Reading Time Taken Comments Blood Pressure 156/93 02/24/2025 6:10 PM CORRECTIONAL THERAPY TEACHER Pulse 88 02/24/2025 6:10 PM CORRECTIONAL THERAPY TEACHER Temperature 37.2 C (98.9 F) 02/24/2025 3:22 PM CORRECTIONAL THERAPY TEACHER Respiratory Rate 18 02/24/2025 3:22 PM CORRECTIONAL THERAPY TEACHER Oxygen Saturation 100% 02/24/2025 6:10 PM CORRECTIONAL THERAPY TEACHER Inhaled Oxygen Concentration - - Weight 113 kg (249 lb 1.9 oz) 02/24/2025 3:22 PM CORRECTIONAL THERAPY TEACHER Height 182.9 cm (6') 02/24/2025 3:22 PM CORRECTIONAL THERAPY TEACHER Body Mass Index 33.79 02/24/2025 3:22 PM CORRECTIONAL THERAPY TEACHER Plan of Treatment Health Maintenance Due Date [...] ABD+PEL W CON STAT 02/24/2025 5:38 PM CORRECTIONAL THERAPY TEACHER LIPASE STAT 02/24/2025 3:54 PM CORRECTIONAL THERAPY TEACHER COMPREHENSIVE METABOLIC PANEL STAT 02/24/2025 3:54 PM CORRECTIONAL THERAPY TEACHER URINALYSIS STAT 02/24/2025 3:54 PM CORRECTIONAL THERAPY TEACHER MRI SHOULDER RT WO CON Routine 2:17 PM CORRECTIONAL THERAPY TEACHER Right shoulder pain from Last 3 Months Results * CT ABD+PEL W IV CON ONLY (02/24/2025 5:38 PM CORRECTIONAL THERAPY TEACHER) Anatomical Region Laterality Modality Abdomen Computed Tomogra phy 02/24/2025 6:00 PM CORRECTIONAL THERAPY TEACHER Impressions 02/24/2025 6:06 PM CORRECTIONAL THERAPY TEACHER IMPRESSION: 1. Mild right hydroureteronephrosis secondary to an obstructing 7 mm mid right ureteric stone. 2. No CT evidence of bowel obstruction or acute appendicitis. 3. There are 2 nonobstructing right renal stones imaging up to 5.5 mm. 4. Diffuse hepatic steatosis. 5. Prostatomegaly. 6. Partially bilateral varicoceles. Referred By: Interpreted By: Randal Crawley MD, 02/24/2025 6:00 PM Narrative 02/24/2025 6:06 PM CORRECTIONAL THERAPY TEACHER [address] [address] PROCEDURE: CT ABD+PEL W CON HISTORY: Right [...] Procedure Note Randal Crawley MD - 02/24/[address] [address] PROCEDURE: CT ABD+PEL W CON HISTORY: Right [...] Crawley MD, 02/24/2025 6:00 PM Kenrick Nina TRANSMISSION AND COORDINATION ENGINEER CT Final Result * (ABNORMAL) URINALYSIS (02/24/2025 3:54 PM CORRECTIONAL THERAPY TEACHER) SPECIMEN TYPE URINE CLEAN CATCH 02/24/2025 3:54 PM CORRECTIONAL THERAPY TEACHER [facility] COLOR (U) YELLOW 02/24/2025 4:30 PM CORRECTIONAL THERAPY TEACHER [facility] TRANSPARENCY TURBID 02/24/2025 4:30 PM CORRECTIONAL THERAPY TEACHER [facility] SPECIFIC GRAVITY (U) 1.027 1.001 - 1.030 02/24/2025 4:30 PM CORRECTIONAL THERAPY TEACHER [facility] U PH 6.5 5.0 - 9.0 02/24/2025 4:30 PM CORRECTIONAL THERAPY TEACHER [facility] LEUKOCYTES (U) NEGATIVE NEGATIVE 02/24/2025 4:30 PM CORRECTIONAL THERAPY TEACHER [facility] NITRITES NEGATIVE NEGATIVE 02/24/2025 4:30 PM CORRECTIONAL THERAPY TEACHER [facility] PROTEIN RANDOM (U) 30(H) <30 MG/DL 02/24/2025 4:30 PM CORRECTIONAL THERAPY TEACHER [facility] GLUCOSE (U) NORMAL NORMAL MG/DL 02/24/2025 4:30 PM CORRECTIONAL THERAPY TEACHER [facility] KETONES MG/DL (U) NEGATIVE NEGATIVE MG/DL 02/24/2025 4:30 PM CORRECTIONAL THERAPY TEACHER [facility] UROBILINOGEN NORMAL NORMAL MG/DL 02/24/2025 4:30 PM CORRECTIONAL THERAPY TEACHER [facility] BILIRUBIN (U) NEGATIVE NEGATIVE MG/DL 02/24/2025 4:30 PM CORRECTIONAL THERAPY TEACHER [facility] BLOOD (U) 3+(A) NEGATIVE 02/24/2025 4:30 PM CORRECTIONAL THERAPY TEACHER [facility] MUCUS MANY /LPF 02/24/2025 4:30 PM CORRECTIONAL THERAPY TEACHER [facility] WBC/HPF 2 <6 /HPF 02/24/2025 4:30 PM CORRECTIONAL THERAPY TEACHER [facility] RBC/HPF >100(H) <6 /HPF 02/24/2025 4:30 PM CORRECTIONAL THERAPY TEACHER [facility] URINE URINE SPECIMEN OBTAINED BY CLEAN CATCH PROCEDURE / Unknown 02/24/2025 3:54 PM CORRECTIONAL THERAPY TEACHER Kenrick Nina APRN URINE ORDERABLES Final Resul t [facility] [address] [place] [address], [place] [phone] * LIPASE (02/24/2025 3:54 PM CORRECTIONAL THERAPY TEACHER) LIPASE 18 13 - 75 UNITS/L 02/24/2025 6:40 PM CORRECTIONAL THERAPY TEACHER [facility] BLOOD VENOUS BLOOD SPECIMEN / Unknown 02/24/2025 3:54 PM CORRECTIONAL THERAPY TEACHER us Maylin Saxena MD LABORATORY Final Result [facility] [address] [place] [address], * (ABNORMAL) COMPREHENSIVE METABOLIC PANEL (02/24/2025 3:54 PM CORRECTIONAL THERAPY TEACHER) [facility] Signature GLUCOSE 102(H) 70 - 99 MG/DL 02/24/2025 6:40 PM CORRECTIONAL THERAPY TEACHER [facility] BUN 14 7 - 18 MG/DL 02/24/2025 6:40 PM CORRECTIONAL THERAPY TEACHER [facility] CREATININE S/P/B 0.90 0.7 - 1.3 MG/DL 02/24/2025 6:40 PM [facility] SODIUM S/P/B 138 136 - 145 MMOL/L 02/24/2025 6:40 PM CORRECTIONAL THERAPY TEACHER [facility] POTASSIUM S/P/B 4.0 3.5 - 5.1 MMOL/L 02/24/2025 6:40 PM CORRECTIONAL THERAPY TEACHER [facility] CHLORIDE S/P/B 106 97 - 115 MMOL/L 02/24/2025 6:40 PM [facility] CO2 25.6 21 - 32 MMOL/L 02/24/2025 6:40 PM [facility] CALCIUM S/P/B 8.9 8.5 - 10.1 MG/DL 02/24/2025 6:40 PM [facility] BILIRUBIN TOTAL S/P/B 0.4 0.2 - 1.2 MG/DL 02/24/2025 6:40 PM [facility] Comment: THIS ASSAY IS NOT RECOMMENDED FOR PATIENTS UNDERGOING TREATMENT WITH ELTROMBOPAG DUE TO THE POTENTIAL FOR FALSELY ELEVATED RESULTS. TOTAL PROTEIN S/P/B 7.6 6.4 - 8.2 G/DL 02/24/2025 6:40 PM CORRECTIONAL THERAPY TEACHER [facility] ALBUMIN S/P/B 3.9 3.4 - 5.0 G/DL 02/24/2025 6:40 PM CORRECTIONAL THERAPY TEACHER [facility] AST 22 15 - 37 U/L 02/24/2025 6:40 PM CORRECTIONAL THERAPY TEACHER [facility] ALT 68(H) 16 - 60 U/L 02/24/2025 6:40 PM CORRECTIONAL THERAPY TEACHER [facility] ALKALINE PHOSPHATASE S/P/B 90 50 - 136 U/L 02/24/2025 6:40 PM CORRECTIONAL THERAPY TEACHER [facility] ANION GAP 6.4 2 - 10 MMOL/L 02/24/2025 6:40 PM CORRECTIONAL THERAPY TEACHER [facility] BUN CREATININE RATIO 15.6 6 - 26 02/24/2025 6:40 PM CORRECTIONAL THERAPY TEACHER [facility] A/G RATIO 1.1 1.0 - 2.0 RATIO 02/24/2025 6:40 PM CORRECTIONAL THERAPY TEACHER [facility] GFR ESTIMATE >90 >90 ML/MIN/1.7 3 M2 02/24/2025 6:40 PM CORRECTIONAL THERAPY TEACHER [facility] Comment: NOTE: eGFR is not calculated for patients <18 years of age or gender unknown. This is an estimated GFR calculation using the new CKD EPI creatinine equation without race and so does not require a correction factor for race. This estimated GFR should not be used for calculating drug doses. BLOOD VENOUS BLOOD SPECIMEN / Unknown 02/24/2025 3:54 PM CORRECTIONAL THERAPY TEACHER us Maylin Saxena MD LABORATORY Final Result [facility] [address] [place] [address], * MRI SHOULDER RT WO CON (02/06/2025 2:17 PM CORRECTIONAL THERAPY TEACHER) Anatomical Region Laterality Modality Shoulder Magnetic Resonan ce 02/15/2025 3:23 PM CORRECTIONAL THERAPY TEACHER Impressions 02/15/2025 3:28 PM CORRECTIONAL THERAPY TEACHER IMPRESSION: 1. Small partial articular sided insertional [...] 02/15/2025 3:23 PM Narrative 02/15/2025 3:28 PM CORRECTIONAL THERAPY TEACHER [address] [address] EXAMINATION: MRI RIGHT SHOULDER WITHOUT CONTRAST EXAM [...] Procedure Note Prem Jones MD - 02/15/[address], [place] [address] EXAMINATION: MRI RIGHT SHOULDER WITHOUT CONTRAST EXAM [...] Interpreted By: Prem Jones, 02/15/2025 3:23 PM Zachary Venegas DO MRI Final Resul t from Last 3 Months Insurance [facility] Care Teams Manufacturing Baker Relationship Specialty Start Date End Date Zachary Venegas DO [address] [phone] PCP - General FAMILY PRACTICE 01/05/25
--- NOTE | 2025-03-03 06:28 | WPDHPUPDATE1 ---
History and Physical Update Update Date/Time: 03/03/25 06:28 History and Physical has been reviewed, including an updated exam of the patient. There are NO changes in the patient's condition. Risks, benefits, and alternatives have been discussed and questions answered. Patient agrees to proceed with procedure.
--- NOTE | 2025-03-03 14:02 | WPDANESEPPF ---
Anes - Initial Pre Proc Eval Procedure: Operation Date: 03/03/25 14:00 Proposed Procedures p Cystoscopy, Right Ureteroscopy, Possible Right Retrograde Pyelogram, Possible Right Stone Extraction, Possible Right Stent Placement, Possible Holmium Laser - Dirk Fisher MD Date/Time: 03/03/25 14:02 Surgeon: Dirk Fisher MD Pre Op Diagnosis: right ureteral stone Patient Data Age: 55 Gender: M Height: 1.83 m Weight: 119.3 kg Last Vital Signs Temp 97.2 F L 03/03/25 12:48 Pulse 87 03/03/25 12:48 Resp 18 03/03/25 12:48 BP 145/86 H 03/03/25 12:48 Pulse Ox 99 03/03/25 12:48 O2 Del Method Room Air 03/03/25 12:48 Allergies Allergy/AdvReac Type Severity Reaction Status Date / Time No Known Allergies Allergy Verified 03/03/25 12:36 Home Medications ?Medication ?Instructions ?Recorded ?Confirmed ?Type hydrochlorothiazide 12.5 mg tablet 12.5 mg PO DAILY 01/01/23 03/03/25 History lisinopril 20 mg tablet 20 mg PO DAILY 01/01/23 03/03/25 History hydrocodone 5 mg-acetaminophen 325 1 tablet PO Q8H PRN pain 02/28/25 02/28/25 History mg tablet multivitamin (Daily Multi-Vitamin 1 tablet PO DAILY 02/28/25 03/03/25 History tablet) Patient hx anesthesia problems: none Family hx anesthesia problems: none Results Review: All pre-operative results and documents have been reviewed as part of the pre-operative evaluation. [facility] Past Medical History Medical History GERD (gastroesophageal reflux disease) Hypertension Family History Family History Mother Hypertension Sibling Lupus has 2 sisters with lupus Grandparent Diabetes mellitus maternal grandfather Father No problems noted. Social History Social History Smoking status: Never smoker Second hand tobacco smoke exposure: No Alcohol intake: current Alcohol use details: socially Substance use: never Substance use type: does not use Living arrangements: with family Additional occupation/education comments: Gender identity (if verbalized by the patient): Male Spiritual care concerns: No Anes - Eval Final PreProcedure Day of Procedure 03/03/25 14:02 Patient weight: obese Lungs: normal air movement Airway: Mallampati scale class II Neurological: alert and oriented Last oral intake: >/= 8 hours ASA classification: III Emergent: no Anesthetic plan: proceed Anesthesia type and monitoring: general LMA and standard monitoring Results Review: All pre-operative results and documents have been reviewed as part of the pre-operative evaluation. HTN, hyperlipidemia, MICHAEL uses a dental appliance. Pt walks 2 miles, no cp or sob. Informed Consent: The patient's anesthetic plan and its attendant risks and benefits were discussed with the patient/family/POA. Questions were solicited and answers provided to the satisfaction of the patient/family/POA.
[2025-03-03] MEDS: ceFAZolin 2 GM in SODIUM CHLORIDE 0.9% IV 50 ML 100 ML IVPB (14:22)
[2025-03-03] MEDS: LIDOCAINE 2% GEL UROJET 10 ML PKG MUCOUS MEM (14:37)
--- NOTE | 2025-03-03 15:04 | S_PTH ---
PATIENT: Aaron Victoria LOC: [facility] U#:[id number] AGE/SX: 55/M ROOM: RE03/03/[address]: Dirk Fisher MD : 1970 BED: DIS: 03/03/2025 SPEC #: [id number] RECD: 03/06/25 07:23 STATUS: JOSE RENena #: [id number] CORINA: 03/03/25 15:[address]: Dirk Fisher DEPT: [facility] Surgical RECD BY: Bina Trent ENTERED: 03/06/25 07:23 SP TYPE: Surgical OTHR DR: RADHA [facility] Tissues: A - Stone Procedures: Gross Exam Level 1 Crystalline Analysis
[2025-03-03] MEDS: LACTATED RINGERS 1,000 ML 30 ML IV CONT (15:09)
--- NOTE | 2025-03-03 15:14 | W.PM.PROC2 ---
Procedure Note - Detailed Date of Procedure 03/03/25 Pre-op Diagnosis Right ureteral stone Post-op Diagnosis Same Procedure Performed Cystoscopy, right ureteroscopy with laser lithotripsy, stone extraction with retrograde pyelogram right ureteral stent placement Surgeon Dirk Fisher MD Anesthesia General Description of Procedure Patient is brought to the operative suite where he was prepped draped in routine sterile fashion while in dorsal lithotomy position.. Ureteroscopy was undertaken with a 7.5 F flexible digital ureteral scope. Immediately I can see there was significant ureteral edema with impaction of this mid ureteral stone. Using the 200 micron Christo laser I fractured into multiple small pieces, all of which which were extracted with a 1.9 F 0 tip disposable stone basket. Because of the ureteral edema up to the place a 4.8 F variable length stent. Retrograde pyelogram was obtained to ensure appropriate placement of the stent with the proximal coil in the renal pelvis and distal coil in the bladder. Scopes and wires were removed and he was taken recovery room good condition Drains Yes Packing No Pathology Yes Complications No immediate complications
[2025-03-03] MEDS: fentaNYL CITRATE INJ (*CRX) 100 MCG/2 ML VIAL 25 MCG IV PUSH (15:30)
[2025-03-03] MEDS: oxyCODONE HCL (*CRX) 5 MG TAB IR PO (16:38)
--- NOTE | 2025-03-03 17:33 | SUR.PHASEII ---
Dr. Majano aware of patient's elevated BP. He said okay for patient to discharge home and resume BP meds tomorrow morning.
== END 2025-03-03 17:20 | disposition home or self-care (01) ==
PROVIDERS: Visit Provider Urology
PROC: (CPT 52352; principal; 2025-03-03 14:00)
DX: N20.1 Calculus of ureter (principal); I10 Essential (primary) hypertension; E78.5 Hyperlipidemia, unspecified; K21.9 Gastro-esophageal reflux disease without esophagitis; G47.33 Obstructive sleep apnea (adult) (pediatric); E66.9 Obesity, unspecified; Z68.35 Body mass index [BMI] 35.0-35.9, adult; Z79.899 Other long term (current) drug therapy; Z79.891 Long term (current) use of opiate analgesic
CPT/HCPCS: 52356; 74420; 82365; 88300; J0690; A9270; C1769; C1894; C2617; J0360; J2405; J2704; J3010; J7120